=== PATIENT | female | born 1995 | race Caucasian/White ===

== ENCOUNTER 2019-09-15 22:05 | Emergency (ER) | payer BC, OTHER ==
[~2019-09-15] VITALS: Ht 160 cm; Wt 133.8 kg
[2019-09-15 22:44] LABS: URINE BILIRUBIN NEGATIVE (Negative); URINE BLOOD NEGATIVE (Negative); URINE CLARITY CLEAR; URINE COLOR YELLOW; URINE GLUCOSE-RANDOM* NEGATIVE (Negative); URINE KETONES NEGATIVE (Negative); URINE LEUKOCYTES-REFLEX NEGATIVE (Negative); URINE NITRITE-REFLEX NEGATIVE (Negative); URINE PROTEIN (DIPSTICK) NEGATIVE (Negative); URINE SPECIFIC GRAVITY >= 1.030 (1.005-1.035); URINE UROBILINOGEN 0.2 E.U./dl (0.2-1.0)
[2019-09-15 23:39] LABS: ABSOLUTE NEUTROPHILS 5.9 thou/uL (1.4-8.2); BASOPHILS 0.9 % (0.0-2.0); EOSINOPHILS 1.5 % (0.0-3.0); HEMATOCRIT 39.7 % (37.0-47.0); HEMOGLOBIN 13.2 gm/dL (12.0-15.0); LYMPHOCYTES 32.3 % (24.0-44.0); MCH 28.3 pg (26.0-34.0); MCHC 33.3 g/dL (28.0-37.0); MCV 84.9 fL (80.0-100.0); PLATELET COUNT 265 thou/uL (150-400); POLYS 61.3 % (36.0-66.0); RBC 4.67 mil/uL (4.20-5.00); RDW 12.9 % (10.5-14.5); WBC 9.7 thou/uL (4.0-11.0)
[2019-09-15 23:44] LABS: CALCIUM 9.4 mg/dL (8.5-10.1); CREATININE 0.9 mg/dL (0.6-1.0); POTASSIUM 3.5 mmol/L (3.5-5.1)
[2019-09-15 23:50] LABS: TOTAL BILIRUBIN 0.4 mg/dL (<0.1-1.0); TOTAL PROTEIN 7.6 g/dL (6.4-8.2)
[2019-09-16] MEDS ORDERED: ZOFRAN ODT4 MG PO (01:51)
[2019-09-16] MEDS ORDERED: ULTRAM 50MG TAB50 MG PO (01:51)
[2019-09-16] MEDS ORDERED: PROTONIX40 M2 PO (01:51)
[2019-09-16 02:03] VITALS: BP 129/90
== END 2019-09-16 02:05 | disposition home or self-care (01) ==
LOC: ER 22:05
PROVIDERS: Emergency Medicine; Physician Assistant
DX: R10.84 Generalized abdominal pain (principal); R10.11 Right upper quadrant pain; M79.7 Fibromyalgia; G47.30 Sleep apnea, unspecified; J45.909 Unspecified asthma, uncomplicated; Z98.890 Other specified postprocedural states; Z88.8 Allergy status to other drugs, medicaments and biological substances

== ENCOUNTER 2019-10-16 22:02 | Emergency (ER) | payer BC, OTHER ==
[~2019-10-16] VITALS: Ht 160 cm; Wt 131.5 kg
[~2019-10-16 22:02] MED LIST: PROTONIX40 M2 PO; ULTRAM 50MG TAB50 MG PO; ZOFRAN ODT4 MG PO
[2019-10-17] MEDS ORDERED: PROMETH-CODEIN 65 ML PO (00:10)
[2019-10-17 00:18] VITALS: BP 136/84
== END 2019-10-17 00:18 | disposition home or self-care (01) ==
LOC: ER 22:02
DX: R05 Cough (principal); G47.30 Sleep apnea, unspecified; G47.10 Hypersomnia, unspecified; Z88.8 Allergy status to other drugs, medicaments and biological substances

== ENCOUNTER 2019-10-30 13:17 | Emergency (ER) | payer BC, OTHER ==
[~2019-10-30] VITALS: Ht 170.2 cm; Wt 63.0 kg
[~2019-10-30 13:17] MED LIST changes: +PROMETH-CODEIN 65 ML PO
[2019-10-30 15:43] LABS: ABSOLUTE NEUTROPHILS 4.6 thou/uL (1.4-8.2); BASOPHILS 1.2 % (0.0-2.0); EOSINOPHILS 1.7 % (0.0-3.0); HEMATOCRIT 39.3 % (37.0-47.0); HEMOGLOBIN 12.8 gm/dL (12.0-15.0); LYMPHOCYTES 30.4 % (24.0-44.0); MCHC 32.6 g/dL (28.0-37.0); MCV 86.1 fL (80.0-100.0); MONOCYTES 4.4 % (1.0-8.0); POLYS 62.3 % (36.0-66.0); RBC 4.57 mil/uL (4.20-5.00); RDW 13.4 % (10.5-14.5); WBC 7.3 thou/uL (4.0-11.0)
[2019-10-30 15:58] LABS: CALCIUM 9.2 mg/dL (8.5-10.1); CREATININE 0.9 mg/dL (0.6-1.0); POTASSIUM 4.1 mmol/L (3.5-5.1)
[2019-10-30 16:01] LABS: ALBUMIN 3.7 g/dL (3.4-5.0); TOTAL BILIRUBIN 0.3 mg/dL (<0.1-1.0); TOTAL PROTEIN 7.3 g/dL (6.4-8.2)
[2019-10-30 16:07] LABS: PLATELET COUNT 211 thou/uL (150-400)
[2019-10-30] MEDS ORDERED: ZOFRAN4 MG PO (17:10)
[2019-10-30 17:25] VITALS: BP 124/71
== END 2019-10-30 17:25 | disposition home or self-care (01) ==
LOC: ER 13:17
PROVIDERS: Emergency Medicine
DX: R10.11 Right upper quadrant pain (principal); J45.909 Unspecified asthma, uncomplicated; G47.30 Sleep apnea, unspecified; M79.7 Fibromyalgia; Z86.2 Personal history of diseases of the blood and blood-forming organs and certain disorders involving the immune mechanism; Z88.8 Allergy status to other drugs, medicaments and biological substances